=== PATIENT | female | born 1975 | race Caucasian/White ===

== ENCOUNTER 2016-07-04 12:16 | Outpatient (CLI) | payer BC, MEDICARE ==
[2012-07-18 02:04] VITALS: BP 135/99
--- NOTE | 2016-07-04 16:38 | Diagnostic Imaging Report ---
[facility] [address] [facility].[address] [address] Report Submission Date: Jul 04, 2016 4:37:45 PM CDT Patient Study Name: ETHEL VITALE Date: Jul 04, 2016 12:29:33 PM CDT Modality Type: CR Gender: F Description: LOWER EXTREMITY : 77 Institution: [facility] Physician: NIELS BOYLE - OP Left ankle - three views Clinical history: Pain. Findings: Examination left ankle in AP, lateral and oblique views fails to demonstrate evidence of fracture, dislocation or other bone or joint pathology. Electronically signed on Jul 04, 2016 4:37:45 PM CDT by: Geovanni MARLEY
--- NOTE | 2016-07-04 16:41 | Diagnostic Imaging Report ---
[facility] [address] [facility].[address] [address] Report Submission Date: Jul 04, 2016 4:38:53 PM CDT Patient Study Name: ETHEL VITALE Date: Jul 04, 2016 12:33:06 PM CDT Modality Type: CR Gender: F Description: LOWER EXTREMITY : 77 Institution: [facility] Physician: NIELS BOYLE - MERY Left foot - three views Clinical history: Pain. Findings: Examination left foot in plantar, lateral and oblique views demonstrates plantar flexion of the foot. There is no evident fracture and no lytic or blastic lesion. Impression: 1. Plantar flexion. 2. No fracture. Electronically signed on Jul 04, 2016 4:38:53 PM CDT by: Geovanni MARLEY
== END 2016-07-04 12:17 ==
LOC: RAD 12:16
PROVIDERS: ATTEND Family Medicine
DX: M25.572 Pain in left ankle and joints of left foot (principal); M79.672 Pain in left foot
CPT/HCPCS: 73610; 73630

== ENCOUNTER 2016-11-27 03:50 | Emergency (ER) | payer BC, MEDICARE ==
--- NOTE | 2016-11-27 04:13 | ED Physician Documentation ---
Headache - HISTORIAN Historian: patient - HPI Chief Complaint: Headache Onset: hours (started 0130) Timing: abrupt Exposure To: none Severity: moderate Quality: similar to previous (when she had low iron levles) Associated Symptoms: light-headedness. 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 Patient does get migraine ROSE but states this feels different. This AM had a sudden onset of some tinnitus and headache, different then what she has had in the pasr. No nausea or vomiting noted. No precipitating factor noted.) Last known Well Code/Unknown Code: Known - ROS NEURO/PSYCH: denies: confusion, anxiety EYES/ENT: denies: sore throat - PAST HX Medical History: seizure, other (traumatic brain injury, ) Surgical History: no surgical history (sleep apnea, constipation, PTSD) Allergies/Adverse Reactions: Allergies Allergy/AdvReac Type Severity Reaction Status Date / Time adhesive tape AdvReac Mild Blister Verified 11/27/16 04:12 Home Medications: Ambulatory Orders Medication Instructions Recorded Naproxen [Naprosyn] 250 mg PO Q8H #1 tablet 07/18/12 - SOCIAL HX Smoking History: non-smoker Alcohol Use: none Drug Use: none - Family HX Family History: none - VITAL SIGNS Vital Signs: Vital Signs Temp Pulse Resp BP Pulse Ox 80 16 95/53 98 11/27/16 03:50 11/27/16 03:50 11/27/16 03:50 11/27/16 03:50 - REVIEWED ASSESSMENTS Nursing Assessment Reviewed: Yes Vitals Reviewed: Yes Progress - Results/Orders Results/Orders: 05:23 Patient states that she is feeling a little better, is nauseated at this time. 06:27 Patientis feeling better, pain down to 5-6/10. Feels that she can do OK at home. Advised that I did not want to give her anought IV shot at this time due to her BP dropping some after the last one. ED Results Lab/Radiology - Lab Results Lab Results: Lab Results 11/27/16 11/27/16 05:00 05:00 WBC 8.70 K/ul K/ul (4.00-12.00) RBC 4.04 M/ul M/ul (3.90-5.20) Hgb 13.8 g/dL g/dL (12.0-16.0) Hct 39.0 % % (34.5-46.5) MCV 96.5 fl fl (80.0-100.0) MCH 34.1 pg H pg (28.0-34.0) MCHC 35.3 g/dL g/dL (30.0-36.0) RDW 13.0 % % (11.3-14.3) Plt Count 309 K/mm3 K/mm3 (130-400) Neut % (Auto) 63.0 % % (39.0-79.0) Lymph % (Auto) 28.4 % % (16.0-50.0) Lumpkin % (Auto) 3.9 % % (0.0-11.0) Eos % (Auto) 2.4 % % (0.0-6.8) Baso % (Auto) 0.6 (0.0-1.5) Neut # (Auto) 5.5 # k/uL # k/uL (1.4-7.7) Lymph # (Auto) 2.5 # k/uL # k/uL (0.6-4.0) Lumpkin # (Auto) 0.3 # k/uL # k/uL (0.0-0.9) Eos # (Auto) 0.2 # k/uL # k/uL (0.0-0.6) Baso # (Auto) 0.0 # k/uL # k/uL (0.0-0.5) Reactive Lymphs % 1.6 % % (0.0-5.0) Reactive Lymphs # 0.1 # k/uL # k/uL (0.0-0.8) Sodium 141 mmol/L mmol/L (136-145) Potassium 3.5 mmol/L mmol/L (3.5-5.0) Chloride 107 mmol/L mmol/L (98-110) Carbon Dioxide 27 mmol/L mmol/L (20-32) BUN 6 mg/dL L mg/dL (10-26) Creatinine 0.6 mg/dL mg/dL (0.4-1.5) Estimated Creat Clear 199 Est GFR ( Amer) > 60 (60 - ) Est GFR (Non-Af Amer) > 60 (60 - ) Glucose 101 mg/dL H mg/dL (70-99) Calcium 9.4 mg/dL mg/dL (8.5-10.5) Total Bilirubin 0.4 mg/dL mg/dL (0.2-1.2) AST 26 U/L U/L (0-41) ALT 20 U/L U/L (0-45) Alkaline Phosphatase 62 U/L U/L (46-116) Total Protein 7.0 g/dL g/dL (6.0-8.5) Albumin 4.5 g/dL g/dL (3.0-5.5) - Radiology Radiology Impressions: History: Headache Findings: Transverse brain sections are obtained without contrast. Ventricles and sulci are normal in size. Hallman white differentiation is intact. There is no intracranial hemorrhage, mass lesion, or fluid collection. The skull is intact. Mild left frontal sinus mucosal thickening is present. Impression: 1. Unremarkable brain. 2. Chronic left frontal sinusitis. - Orders Orders: ED Orders Category Date Time Status Place IV Lock 1T Care 11/27/16 04:[address] BRAIN W/O CONTRAST Stat Exams 11/27/16 Taken CBC/PLATELET/DIFF Routine Lab 11/27/16 05:00 Completed CMP Routine Lab 11/27/16 05:00 Completed IRON SERUM Routine Lab 11/27/16 05:00 Received HYDROmorphone HCL [Dilaudid] Med 11/27/16 06:42 Once 2 mg PO NOW ONE HYDROmorphone HCL/PF [Dilaudid] Med 11/27/16 05:49 Discontinued 1 mg IVP NOW ONE Ketorolac Tromethamine [Toradol] Med 11/27/16 04:57 Discontinued 30 mg IVP NOW ONE Ondansetron HCl/Pf [Zofran 4 mg/2 ml] Med 11/27/16 05:31 Discontinued 4 mg .ROUTE .STK-MED ONE Ondansetron HCl/Pf [Zofran 4 mg/2 ml] Med 11/27/16 05:31 Discontinued 4 mg IVP NOW ONE Headache Physical Exam - EXAM General Appearance: mild distress EENT: no facial swelling, eyes nml inspection, nml ENT Neck: normal inspection, thyroid normal, supple. No: lymphadenopathy, stiff neck Respiratory: no resp distress, chest non-tender, breath sounds normal. No: wheezes, rales, rhonchi CVS: reg. rate & rhythm, heart sounds nml. No: murmur Abdomen: non-tender, no organomegaly, nml bowel sounds, no distention Skin: color nml, no rash - NEURO/PSYCH Higher Functions: alert, mood/affect nml Cranial: denies: facial droop, tongue deviation to right Cerebellar: denies: abnml [id number] Sensorimotor: weakness (LUE, LLE) Discharge Clincal Impression: Headache Referrals: Primary Doctor,No [Primary Care Provider] - 2 Days Additional Instructions: Home and rest, take dilaudid if needed for pain, make sure you wear your C-pap when sleeping. If you continue to have headache pain to see your PCP or return tot he ED. Condition: Stable Disposition: 01 HOME, SELF-CARE Decision to Admit: NO Date of Decison to Admit: 11/27/16 Decision Time: 06:45
[2016-11-27] MEDS ORDERED: KETOROLAC TROMETHAMINE 30 MG/1ML VIAL IVP ONE (04:57)
[2016-11-27 05:14] LABS: BASOPHILS % 0.6 (0.0-1.5); EOSINOPHILS % 2.4 % (0.0-6.8); MEAN CORPUSCULAR HEMOGLOBIN 34.1 pg (28.0-34.0); MEAN CORPUSCULAR VOLUME 96.5 fl (80.0-100.0); MONOCYTES % 3.9 % (0.0-11.0); NEUTROPHILS # 5.5 # k/uL (1.4-7.7)
[2016-11-27 05:23] LABS: eGFR (African) > 60; eGFR (Non-African) > 60
[2016-11-27] MEDS ORDERED: ONDANSETRON HCL/PF 4 MG/ 2ML VIAL ONE (05:31)
[2016-11-27] MEDS ORDERED: ONDANSETRON HCL/PF 4 MG/ 2ML VIAL IVP ONE (05:31)
[2016-11-27] MEDS ORDERED: HYDROmorphone HCL/PF 1 MG/ML DISP.SYRIN IVP ONE (05:49)
[2016-11-27] MEDS ORDERED: HYDROmorphone HCL 2 MG TABLET PO ONE (06:42)
--- NOTE | 2016-11-27 07:09 | Diagnostic Imaging Report ---
[facility] [address] [facility] [address] [address] Report Submission Date: Nov 27, 2016 5:09:58 AM CDT Patient Study Name: ETHEL VITALE Date: Nov 27, 2016 4:47:03 AM CDT Modality Type: CT\SR Gender: F Description: CT BRAIN W/O CONTRAST : 77 Institution: [facility] Physician: NIELS BOYLE Computed tomography of the head without contrast a History: Headache Findings: Transverse brain sections are obtained without contrast. Ventricles and sulci are normal in size. Hallman white differentiation is intact. There is no intracranial hemorrhage, mass lesion, or fluid collection. The skull is intact. Mild left frontal sinus mucosal thickening is present. Impression: 1. Unremarkable brain. 2. Chronic left frontal sinusitis. Electronically signed on Nov 27, 2016 5:09:58 AM CDT by: Maurice MARLEY
[2016-11-27 07:13] VITALS: BP 94/46
== END 2016-11-27 07:05 | disposition home or self-care (01) ==
LOC: ED 03:50
DX: R51 Headache (principal)
CPT/HCPCS: 70450; 80053; 83540; 85025; J1170; J1885; J2405; 96374; 96375; 99283; S1016

== ENCOUNTER 2017-04-28 10:07 | Outpatient (CLI) | payer BC ==
[2017-04-28 10:23] LABS: BASOPHILS % 0.4 (0.0-1.5); EOSINOPHILS % 0.8 % (0.0-6.8); MEAN CORPUSCULAR HEMOGLOBIN 34.4 pg (28.0-34.0); MEAN CORPUSCULAR VOLUME 98.5 fl (80.0-100.0); MONOCYTES % 5.2 % (0.0-11.0); NEUTROPHILS # 2.8 # k/uL (1.4-7.7)
[2017-04-28 10:58] LABS: eGFR (African) > 60; eGFR (Non-African) > 60
--- NOTE | 2017-04-28 12:50 | Diagnostic Imaging Report ---
JAMAAL WOOD [facility] [address] [facility] [address] [address] Report Submission Date: Apr 28, 2017 11:49:13 AM ELECTROPHYSIOLOGY SCIENTIST Patient Study Name: ETHEL VITALE Date: Apr 28, 2017 10:33:00 AM ELECTROPHYSIOLOGY SCIENTIST Modality Type: DX Gender: F Description: CHEST : 77 Institution: [facility] Physician: JAMAAL WOOD Examination: PA and lateral chest. History: CXR, FEVER, COUGH, SOA, WEAKNESS, SINCE 04/25/17 (Hx) / FEVER, COUGH, SHORTNESS OF BREATH (DICOM Hx) / FEVER, COUGH, SHORTNESS OF BREATH (Pt comments ) Comparison exam: None provided. Findings: PA lateral chest demonstrate a normal cardiac and mediastinal silhouette. Right greater than left perihilar haziness. No blunting of the costophrenic margins. Osseous structures are appropriate for age. Impression: Right greater than left perihilar haziness/infiltrates. No effusion. Electronically signed on Apr 28, 2017 11:49:13 AM ELECTROPHYSIOLOGY SCIENTIST by: Michael MARLEY
== END 2017-04-28 10:10 ==
LOC: LAB 10:07
PROVIDERS: ATTEND Physician Assistant
DX: R50.9 Fever, unspecified (principal); R05 Cough; R06.02 Shortness of breath
CPT/HCPCS: 36415; 71046; 80053; 85025

== ENCOUNTER 2017-12-22 11:51 | Outpatient (CLI) | payer BC, MEDICARE ==
--- NOTE | 2017-12-22 20:20 | Diagnostic Imaging Report ---
TONIA MARISCAL [facility] [address] [facility].[address] [address] Report Submission Date: Dec 22, 2017 12:35:55 PM CDT Patient Study Name: ETHEL VITALE Date: Dec 22, 2017 11:57:16 AM CDT Modality Type: DX Gender: F Description: CHEST : 77 Institution: [facility] Physician: TONIA MARISCAL Examination: PA and lateral chest. History: Evaluate lung camara. Findings: PA and lateral views of the chest demonstrates a normal cardiac and mediastinal silhouette. No focal infiltrate. No blunting of the costophrenic margins. Osseous structures are appropriate for age. Impression: No acute pulmonary process. Electronically signed on Dec 22, 2017 12:35:55 PM CDT by: Michael MARLEY
== END 2017-12-22 11:53 ==
LOC: RAD 11:51
PROVIDERS: ATTEND Physician Assistant
DX: R50.9 Fever, unspecified (principal)
CPT/HCPCS: 71046

== ENCOUNTER 2018-06-23 00:15 | Emergency (ER) | payer BC, MEDICARE ==
[2018-06-23] MEDS ORDERED: ASPIRIN 81 MG CHEW TAB PO ONE (00:21)
[2018-06-23] MEDS ORDERED: ONDANSETRON HCL/PF 4 MG/ 2ML VIAL IVP ONE (00:41)
[2018-06-23] MEDS ORDERED: methylPREDNISolone SOD SUCC 125 MG/2 ML VIAL IVP ONE (00:41)
[2018-06-23] MEDS ORDERED: 0.9 % SODIUM CHLORIDE 500 ML IV ONE (00:41)
[2018-06-23] MEDS ORDERED: IPRATROPIUM/ALBUTEROL SULFATE 3 ML AMPUL.NEB NEB ONE (00:41)
--- NOTE | 2018-06-23 00:46 | ED Physician Documentation ---
Chest Pain - HISTORIAN Historian: patient - HPI Chief Complaint: Chest Pain (Chest Pressure) Additional Information: Patient is a 42-year-old female who presents to the ER with c/o chest pressure (feels like someone is sitting on her chest) that started yesterday afternoon around 2 p.m. She states that she is exposed to 2nd hand smoke- she had to use her home oxygen yesterday afternoon. She states that over the last couple of weeks she has had fevers of 103 and treated with Tylenol and Ibuprofen. Onset: days ago (yesterday afternoon) Timing: gradual onset, still present Duration: constant, persistent Last known Well Date: 06/22/18 Last Known Well Time: 14:00 Context: exertion Severity: moderate Quality: pressure Chest Pain Radiation: denies: jaw, arms Chest Pain Signs/Symptoms: nausea. denies: vomiting, diaphoresis Worsened By: nothing Relieved By: nothing - ROS CONST: none MS/LYMPH: none GI/: none EYES/ENT: none SKIN/ENDO: none NEURO/PSYCH: none - PAST HX DC risk factors: other (seizure, TBI x2, NAOMY, PTSD, ) DVT/PE Risk Factors: none TAD/AAA risk factors: none Neuro deficit: none GI disease: none Lung disease: none Surgeries/Procedures: other (, appy, muscle wall of abdomen repair) Immunizations: UTD Allergies/Adverse Reactions: Allergies Allergy/AdvReac Type Severity Reaction Status Date / Time Penicillins Allergy Verified 06/23/18 01:23 adhesive tape AdvReac Mild Blister Verified 06/23/18 01:23 Home Medications: Ambulatory Orders Medication Instructions Recorded Naproxen [Naprosyn] 250 mg PO Q8H #1 tablet 07/18/12 Albuterol Sulfate [Albuterol 2 puff IH Q4-6 PRN #1 hfa.aer.ad 06/23/18 Sulfate Hfa] Methylprednisolone [Medrol] 4 mg PO DAILY #21 tab.ds.pk 06/23/18 - SOCIAL HX Smoking History: non-smoker, secondhand Alcohol Use: none Drug Use: none - FAMILY HX Family HX: none - VITAL SIGNS Vital Signs: Vital Signs Temp Pulse Resp BP Pulse Ox 94/46 11/27/16 07:05 Progress - Progress Progress: 01:30 Talked with patient about observation admission but she would like to go home- she states that she feels much better after breathing treatment. She states that she was in/out of hospital many times when she has the TBI x2. She has family support at home and will be able to rest. ED Results Lab/Radiology - Radiology Radiology Impressions: Pa and lateral chest Clinical history chest pain Technique pa and lateral upright Findings: The lung camara are clear. I see no hilar or mediastinal mass. There is no pleural effusion or lesion of the bony thorax. Impression: No acute pulmonary disease Electronically signed on Jun 23, 2018 1:10:42 AM CDT by: Danis Pena - Orders Orders: ED Orders Category Date Time Status Continuous EKG monitoring Q30M Care 06/23/18 00:21 Active Continuous Pulse Oximetry Q30M Care 06/23/18 00:[address] IV Lock 1T Care 06/23/18 00:21 Active CHEST 2VIEW [RAD] Stat Exams 06/23/18 Ordered CBC/PLATELET/DIFF Routine Lab 06/23/18 00:21 Ordered CMP Routine Lab 06/23/18 00:21 Ordered CREATINE KINASE Routine Lab 06/23/18 00:21 Ordered TROPONIN I Stat Lab 06/23/18 00:21 Ordered 0.9 % Sodium Chloride [Normal Saline] 500 ml Med 06/23/18 00:41 Active IV NOW Aspirin [Gena] Med 06/23/18 00:21 Discontinued 324 mg PO NOW ONE Ipratropium/Albuterol Sulfate [Duoneb] Med 06/23/18 00:41 Discontinued 3 ml NEB NOW ONE Ondansetron HCl/Pf [Zofran] Med 06/23/18 00:41 Discontinued 4 mg IVP NOW ONE methylPREDNISolone SOD SUCC [Solu-MEDROL] Med 06/23/18 00:41 Discontinued 125 mg IVP NOW ONE EKG WITH COMPARISON Stat Ther 06/23/18 00:21 Ordered Chest Pain Physical Exam - EXAM General Appearance: moderate distress EENT: eye inspection normal, ENT inspection normal, pharynx normal, RITO Neck: nml inspection, no carotid bruit Respiratory: decreased air movement, wheezes CVS: reg. rate & rhythm, no murmur, pulses equal Abdomen: soft, normal bowel sounds Skin: warm/dry Extremities: normal range of motion Neuro: oriented X3, CN's nml as tested, motor nml, sensation nml, cognition normal Discharge Clincal Impression: Costochondritis Prescriptions: Albuterol Sulfate [Albuterol Sulfate Hfa] 2 puff IH Q4-6 PRN #1 hfa.aer.ad PRN Reason: Wheezing/Shortness of breath Methylprednisolone [Medrol] 4 mg PO DAILY #21 tab.ds.pk Referrals: Magan Whitehead MD [Primary Care Provider] - 2 Days Additional Instructions: Take Medrol dose pack as directed Use Albuterol inhaler for wheezing/shortness of breath Increase fluid intake Follow up with PCP next week Condition: Good Disposition: 01 HOME, SELF-CARE Decision to Admit: NO Decision Time: 01:40
[2018-06-23 02:05] VITALS: BP 90/54
--- NOTE | 2018-06-23 06:10 | Diagnostic Imaging Report ---
EVERETT LUI ED [facility] [address] [facility] [address] [place], [place]. [address] Report Submission Date: Jun 23, 2018 1:10:42 AM CDT Patient Study Name: ETHEL VITALE Date: Jun 23, 2018 12:47:05 AM CDT Modality Type: DX Gender: F Description: CHEST 2VIEW : 77 Institution: [facility] Physician: EVERETT LUI ED Pa and lateral chest Clinical history chest pain Technique pa and lateral upright Findings: The lung camara are clear. I see no hilar or mediastinal mass. There is no pleural effusion or lesion of the bony thorax. Impression: No acute pulmonary disease Electronically signed on Jun 23, 2018 1:10:42 AM CDT by: Danis MARLEY
[2018-06-23 08:13] LABS: BASOPHILS % 1.6 % (0.0-1.5); EOSINOPHILS % 1.8 % (0.0-6.8); MONOCYTES % 4.7 % (0.0-11.0); NEUTROPHILS # 4.6 # k/uL (1.4-7.7)
[2018-06-23 08:15] LABS: eGFR (Non-African) > 60
== END 2018-06-23 01:38 | disposition home or self-care (01) ==
LOC: ED 00:15
DX: M94.0 Chondrocostal junction syndrome [Tietze] (principal)
CPT/HCPCS: 36415; 71046; 80053; 82550; 84484; 85025; 93005; 94640; 96374; 96375; 99283; 99284; J2405; J2930; J7060; S1016

== ENCOUNTER 2018-06-26 20:25 | Emergency (ER) | payer BC, MEDICARE ==
[2018-06-26] MEDS ORDERED: Lidocaine 1% 5ml 10 MG/ML VIAL IJ ONE (20:56)
--- NOTE | 2018-06-26 20:56 | ED Physician Documentation ---
General Adult - HISTORIAN Historian: patient - HPI Stated Complaint: Left first digit laceration Chief Complaint: Upper Extremity Injury Onset: minutes Timing: still present Severity: mild Further Comments: no - ROS CONST: no problems - PAST HX Past History: other (NAOMY, Traumatic brain injury, Seizure disorder) Other History: none Surgeries/Procedures: none Immunizations: referred to PCP Allergies/Adverse Reactions: Allergies Allergy/AdvReac Type Severity Reaction Status Date / Time Penicillins Allergy Verified 06/26/18 20:36 adhesive tape AdvReac Mild Blister Verified 06/26/18 20:36 Home Medications: Ambulatory Orders Medication Instructions Recorded Naproxen [Naprosyn] 250 mg PO Q8H #1 tablet 07/18/12 Albuterol Sulfate [Albuterol 2 puff IH Q4-6 PRN #1 hfa.aer.ad 06/23/18 Sulfate Hfa] Methylprednisolone [Medrol] 4 mg PO DAILY #21 tab.ds.pk 06/23/18 - SOCIAL HX Smoking History: non-smoker Alcohol Use: none Drug Use: none - FAMILY HX Family History: No - VITAL SIGNS Vital Signs: Vital Signs Temp Pulse Resp BP Pulse Ox 79 16 126/71 97 06/26/18 20:25 06/26/18 20:25 06/26/18 20:25 06/26/18 20:25 - REVIEWED ASSESSMENTS Nursing Assessment Reviewed: Yes Vitals Reviewed: Yes Procedures Wound Location: upper extremity (left index) Wound Length: 2.9cm Wound's Depth, Shape: superficial, flap Wound Explored: clean Betadine Prep?: Yes Anesthesia: 1% Lidocaine Volume of Anesthetic: 0.6ml Wound Debrided: none Wound Repaired With: sutures Suture Size/Type: 5:0 Number of Sutures: 6 General Adult Physical Exam - PHYSICAL EXAM GENERAL APPEARANCE: no distress NECK: normal inspection, supple RESPIRATORY: no resp distress CVS: reg rate & rhythm, heart sounds normal, equal pulses, no murmur, no gallop, no JVD BACK: normal inspection SKIN: other (cn shape laceration to distal left index finger) NEURO: oriented X3, other (decrease sensation to laceration area, patient states that it is at baseline) Discharge Clincal Impression: Laceration of left index finger Qualifiers: Encounter type: initial encounter Damage to nail status: without damage Foreign body presence: without foreign body Qualified Code(s): S61.211A - Laceration without foreign body of left index finger without damage to nail, initial encounter Referrals: Magan Whitehead MD [Primary Care Provider] - 2 Days Additional Instructions: Keep would clean and dry. Watch for signs of infection (swelling, redness, red streaking, fever). Have sutures removed in 7 days. Disposition: 01 HOME, SELF-CARE Decision to Admit: NO Date of Decison to Admit: 06/26/18 Decision Time: 21:46
[2018-06-26] MEDS ORDERED: DIPH,PERTUSS(ACELL),TET VAC/PF 0.5 ML DISP.SYRIN IM ONE (21:07)
[2018-06-26] MEDS: DIPH,PERTUSS(ACELL),TET VAC/PF 0.5 ML DISP.SYRIN IM SCH (21:54)
[2018-06-26 22:00] VITALS: BP 102/74
== END 2018-06-26 22:00 | disposition home or self-care (01) ==
LOC: ED 20:25
DX: S61.211A Laceration without foreign body of left index finger without damage to nail, initial encounter (principal); X58.XXXA Exposure to other specified factors, initial encounter; Y93.9 Activity, unspecified; Y92.9 Unspecified place or not applicable
CPT/HCPCS: 12002; 90471; 90715; 99282; 99283; J7030